=== PATIENT | female | born 1940 | race Caucasian/White ===

== ENCOUNTER 2018-12-12 15:24 | Inpatient (IN) | payer OTHER ==
[~2018-12-12] VITALS: Ht 147.3 cm; Wt 51.0 kg
[2018-12-12 16:39] LABS: BASOPHIL % 0.2 % (0-2); PLATELET COUNT 200 x10^3mcL (130-400); RED CELL DISTRIBUTION WIDTH 14.3 % (11.5-14.5)
[2018-12-12 16:49] LABS: CALCIUM 9.1 mg/dL (8.5-10.1); CARBON DIOXIDE 28.2 mmol/L (21-32); CHLORIDE SERUM 104 mmol/L (98-107); CREATININE SERUM 0.6 mg/dL (0.6-1.0); GLUCOSE SERUM 122 mg/dL (74-106); SODIUM SERUM 140 mmol/L (136-145)
[2018-12-12 16:55] LABS: ALBUMIN 3.8 g/dL (3.4-5.0); ALKALINE PHOSPHATASE 170 U/L (46-116); ALT/SGPT 95 U/L (14-59); AST/SGOT 188 U/L (15-37); BILIRUBIN TOTAL 1.57 mg/dL (0.20-1.00); CHOLESTEROL 172 mg/dL (<200); HDL CHOLESTEROL 40 mg/dL (40-60); TOTAL PROTEIN, SERUM 7.8 g/dL (6.4-8.2)
[2018-12-12 17:31] LABS: microscopic required? NO
[2018-12-12 17:49] LABS: UA SPECIFIC GRAVITY 1.015 (1.005-1.035); urine erythrocyte NEGATIVE (NEGATIVE)
[2018-12-12 17:59] LABS: AMYLASE 3313 U/L (25-115)
[2018-12-12 18:17] LABS: LIPASE 33671 IU/L (73-393)
[2018-12-12 19:47] LABS: CHOLESTEROL/HDL RATIO 4.4; MAGNESIUM 2.4 mg/dL (1.8-2.4); PHOSPHOROUS 3.5 mg/dL (2.5-4.9)
[2018-12-12 19:50] VITALS: BP 150/67
[2018-12-12 19:54] LABS: FREE T4 1.45 ng/dL (0.76-1.46)
[2018-12-12 19:55] LABS: FREE THYROXINE INDEX 4.9 ug/dL (1.4-4.5); T4(THYROXINE) 13.7 ug/dL (4.7-13.3)
[2018-12-12 20:00] LABS: T3 TOTAL 1.45 ng/mL
[2018-12-12 20:12] LABS: AMPHETAMINE QUAL UR NONE DETECTED (See below)
[2018-12-12 20:51] VITALS: BP 127/70
[2018-12-12 20:56] VITALS: Ht 147.3 cm; Wt 51.0 kg
[2018-12-13 01:18] LABS: AMYLASE 1697 U/L (25-115); LIPASE 6167 IU/L (73-393)
[2018-12-13 05:54] LABS: PLATELET COUNT 173 x10^3mcL (130-400); RED CELL DISTRIBUTION WIDTH 14.4 % (11.5-14.5)
[2018-12-13 05:58] VITALS: BP 131/78
[2018-12-13 06:51] LABS: ALKALINE PHOSPHATASE 142 U/L (46-116); ALT/SGPT 267 U/L (14-59); AST/SGOT 234 U/L (15-37); BILIRUBIN DIRECT 0.31 mg/dL (0.0-0.2); BILIRUBIN TOTAL 0.79 mg/dL (0.20-1.00); CALCIUM 8.5 mg/dL (8.5-10.1); CHLORIDE SERUM 109 mmol/L (98-107); CREATININE SERUM 0.5 mg/dL (0.6-1.0); GLUCOSE SERUM 115 mg/dL (74-106); MAGNESIUM 1.7 mg/dL (1.8-2.4); PHOSPHOROUS 3.1 mg/dL (2.5-4.9); POTASSIUM SERUM 3.9 mmol/L (3.5-5.1); SODIUM SERUM 144 mmol/L (136-145); TOTAL PROTEIN, SERUM 6.7 g/dL (6.4-8.2)
[2018-12-13 07:05] LABS: ALBUMIN 3.1 g/dL (3.4-5.0)
[2018-12-13 07:06] LABS: AMYLASE 1223 U/L (25-115)
[2018-12-13 07:25] LABS: BASOPHIL % 0 % (0-2)
[2018-12-13 08:04] LABS: LIPASE 7960 IU/L (73-393)
[2018-12-13 09:36] VITALS: BP 133/71
[2018-12-13 15:02] VITALS: BP 125/67
[2018-12-13 16:59] VITALS: BP 134/71
[2018-12-13 20:59] VITALS: BP 143/69
[2018-12-14 05:35] VITALS: BP 150/84
[2018-12-14 06:21] LABS: PLATELET COUNT 159 x10^3mcL (130-400); RED CELL DISTRIBUTION WIDTH 14.5 % (11.5-14.5)
[2018-12-14 06:54] LABS: ALKALINE PHOSPHATASE 102 U/L (46-116); ALT/SGPT 144 U/L (14-59); AST/SGOT 74 U/L (15-37); BILIRUBIN DIRECT 0.23 mg/dL (0.0-0.2); BILIRUBIN TOTAL 0.6 mg/dL (0.20-1.00); CALCIUM 8.6 mg/dL (8.5-10.1); CARBON DIOXIDE 24.7 mmol/L (21-32); CHLORIDE SERUM 106 mmol/L (98-107); CREATININE SERUM 0.5 mg/dL (0.6-1.0); GLUCOSE SERUM 116 mg/dL (74-106); LIPASE 730 IU/L (73-393); POTASSIUM SERUM 3.6 mmol/L (3.5-5.1); SODIUM SERUM 142 mmol/L (136-145); TOTAL PROTEIN, SERUM 6.3 g/dL (6.4-8.2)
[2018-12-14 07:07] LABS: ALBUMIN 2.9 g/dL (3.4-5.0)
[2018-12-14 07:19] LABS: BASOPHIL % 0 % (0-2)
[2018-12-14 09:44] VITALS: BP 151/86
[2018-12-14 13:09] VITALS: BP 149/79
[2018-12-14 17:40] VITALS: BP 139/92
[2018-12-14 22:11] VITALS: BP 133/82
[2018-12-15 05:40] VITALS: BP 143/90
[2018-12-15 06:08] LABS: PLATELET COUNT 164 x10^3mcL (130-400)
[2018-12-15 06:23] LABS: CALCIUM 8.6 mg/dL (8.5-10.1); CHLORIDE SERUM 106 mmol/L (98-107); CREATININE SERUM 0.4 mg/dL (0.6-1.0); GLUCOSE SERUM 107 mg/dL (74-106); PHOSPHOROUS 3.1 mg/dL (2.5-4.9); POTASSIUM SERUM 3.3 mmol/L (3.5-5.1); SODIUM SERUM 143 mmol/L (136-145)
[2018-12-15 08:08] LABS: BASOPHIL % 0 % (0-2); RED CELL DISTRIBUTION WIDTH 14.6 % (11.5-14.5)
[2018-12-15 08:53] LABS: LIPASE 341 IU/L (73-393)
[2018-12-15 08:57] LABS: AMYLASE 126 U/L (25-115)
[2018-12-15 09:14] VITALS: BP 146/99
[2018-12-15 09:16] VITALS: BP 146/99
[2018-12-15 17:00] VITALS: BP 139/85
[2018-12-15 21:12] VITALS: BP 130/69
[2018-12-16 05:42] VITALS: BP 145/82
[2018-12-16 10:20] VITALS: BP 144/69
[2018-12-16] MEDS ORDERED: LEVAQUIN750 MG PO (15:11)
[2018-12-16] MEDS ORDERED: MEDDP PO (15:12)
[2018-12-16] MEDS ORDERED: PROAIR HFA8.5 GM IH (15:12)
[2018-12-16 15:40] VITALS: BP 144/69
[2018-12-16 17:39] VITALS: BP 135/93
== END 2018-12-16 18:25 | disposition home or self-care (01) | DRG 871 ==
LOC: ED 15:24 → DU 19:11 → MU 19:11 → DU 20:07 → MU 12-15 11:07
PROVIDERS: Emergency Medicine; General Practice; ADMIT Internal Medicine
DX: A41.9 Sepsis, unspecified organism (principal); J18.9 Pneumonia, unspecified organism; K85.90 Acute pancreatitis without necrosis or infection, unspecified; N17.0 Acute kidney failure with tubular necrosis; J98.11 Atelectasis; R16.0 Hepatomegaly, not elsewhere classified; J44.9 Chronic obstructive pulmonary disease, unspecified; D75.1 Secondary polycythemia; F17.211 Nicotine dependence, cigarettes, in remission; Z68.23 Body mass index [BMI] 23.0-23.9, adult
CPT/HCPCS: 36600; 83880; 84439; 87804; J1885; J1956; J2920; J2930; J7030; J7040; J7613; J7620; J7644; Q0092; Q9967